=== PATIENT | male | born 1950 | race Hispanic/Latino ===

== ENCOUNTER 2018-01-04 13:20 | Observation (INO) | payer OTHER ==
[~2018-01-04] VITALS: Ht 162.6 cm; Wt 73.6 kg
[~2018-01-04 13:20] MED LIST: CARAFATE1 GM PO; DIABETA5 MG PO; LACTULOSE20 GM/30 M PO; LASIX40 MG PO; MORPHINE SU4 MG/1 ML IJ; NADOLOL40 MG PO; ONDANSETRON IJ; PEPTO BISMOL; PROPRANOLOL HCL10 MG PO; PROTONIX40 MG/ML; SPIRONOLACTONE100 MG PO; SPIRONOLACTONE25 MG PO; ULTRAM50 MG PO; XIFAXAN550 MG PO; Z CLEOCIN IV; [UNRECOGNIZED DRUG - OTHER] IJ
[2018-01-04] MEDS ORDERED: FOLIC ACID1 MG PO (13:40)
[2018-01-04] MEDS ORDERED: LOSARTAN POTASS25 MG PO (13:40)
[2018-01-04] MEDS ORDERED: SPIRONOLACTONE25 MG PO (13:40)
[2018-01-04] MEDS ORDERED: GLIMEPIRIDE1 MG PO (13:40)
[2018-01-04] MEDS ORDERED: CIPRO500 MG PO (13:40)
[2018-01-04] MEDS ORDERED: XIFAXAN200 MG PO (13:40)
[2018-01-04] MEDS ORDERED: LACTULOSE20 GM/30 M PO (13:40)
[2018-01-04 14:25] LABS: BASOPHILS % 0.4 % (0.0-1.0); EOSINOPHILS % 1.3 % (0.0-6.0); HEMOGLOBIN 9.1 g/dL (14.0-18.0); LYMPHOCYTES # (AUTO) 0.4 (1.0-3.2); LYMPHOCYTES % 15.7 % (18.0-39.1); MEAN CORPUSCULAR HEMOGLOBIN 31.9 pg (28-32); MEAN CORPUSCULAR HGB CONC 32.5 g/dL (31-35); MEAN CORPUSCULAR VOLUME 98.2 fL (81-99); MONOCYTES # (AUTO) 0.1 (0.2-0.8); MONOCYTES % 6.1 % (4.4-11.3); NEUTROPHILS # (AUTO) 1.8 (2.1-6.9); NEUTROPHILS % 76.1 % (38.7-80.0); RED BLOOD COUNT 2.85 x10e6/uL (4.3-5.7); RED CELL DISTRIBUTION WIDTH 14.9 % (11.7-14.4)
[2018-01-04 14:29] LABS: PLATELET COUNT 24 x10e3/uL (140-360)
[2018-01-04 14:34] LABS: INR 1.6; PARTIAL THROMBOPLASTIN TIME 33.7 seconds (23.8-35.5); PROTHROMBIN TIME 17.9 seconds (11.9-14.5)
[2018-01-04 14:46] LABS: ALBUMIN 2.7 g/dL (3.5-5.0); ALBUMIN/GLOBULIN RATIO 0.5 (0.8-2.0); ANION GAP 12.7 mmol/L (8-16); CALCIUM 8.2 mg/dL (8.4-10.2); CREATININE, SERUM 1.73 mg/dL (0.72-1.25); POTASSIUM 4.7 mmol/L (3.5-5.1)
--- NOTE | 2018-01-04 14:53 | Diagnostic Imaging Report ---
PROCEDURE: A single AP view of the chest. COMPARISON: 02/15/16 INDICATIONS: ALTERED MENTAL STATUS FINDINGS: Lines/tubes: None. Lungs: The lungs are well inflated and clear. There is no evidence of pneumonia or pulmonary edema. Pleura: There is no pleural effusion or pneumothorax. Heart and mediastinum: The heart and the mediastinum are unremarkable. Bones: No acute bony abnormality. Unchanged upper abdominal surgical clips. IMPRESSION: 1. No acute cardiopulmonary disease. Dictated by: Jose Angel Alvarado M.D. on 01/04/2018 at 14:54 Electronically approved by: Jose Angel Alvarado M.D. on 01/04/2018 at 14:54
[2018-01-04 15:09] LABS: THYROID STIMULATING HORMONE 3.906 uIU/mL (0.350-4.940)
[2018-01-04 15:24] LABS: CLARITY,URINE SL CLOUDY (CLEAR); COLOR,URINE STRAW (YELLOW); LEUKOCYTE ESTERASE ,URINE NEGATIVE (NEGATIVE); NITRITE,URINE NEGATIVE (NEGATIVE)
[2018-01-04 15:25] LABS: BILIRUBIN,URINE NEGATIVE (NEGATIVE); KETONES,URINE NEGATIVE (NEGATIVE); PROTEIN,URINE DIPSTICK 2+ (NEGATIVE); URINE UROBILINOGEN 0.2 mg/dL (0.2 - 1)
--- NOTE | 2018-01-04 15:25 | Diagnostic Imaging Report ---
Examination: CT BRAIN WITHOUT CONTRAST History:Confusion. Altered mental status. Comparison studies:Head CT performed 2011 Technique: Axial images were obtained from the skull base to the vertex. Coronal and sagittal images reconstructed from the axial data. Intravenous contrast: None Findings: Scalp: No abnormalities. Bones: No fractures, blastic or lytic lesions. Brain sulci: Appropriate for age. Ventricles: Normal in size and configuration. No hydrocephalus. Extra-axial space: No abnormalities. Parenchyma: No abnormal densities. No masses, hemorrhage, or acute or chronic cortical based vascular insults.. Sellar/suprasellar region: No abnormalities. Craniocervical junction: Patent foramen magnum. No Chiari one malformation. Incidental findings: Again demonstrated is a partially opacified left maxillary sinus with adjacent osteitis, consistent with chronic sinusitis. Impression: 1. No new or acute intracranial abnormalities. No change from prior head CT performed September 21, 2012. 2. Unchanged chronic left maxillary sinusitis. Signed by: Dr. Jennifer Guzman M.D. on 01/04/2018 3:22 PM
[2018-01-04 15:29] LABS: BACTERIA,URINE MODERATE /HPF; EPITHELIAL CELLS,URINE FEW /LPF
[2018-01-04] MEDS ORDERED: ONDANSETRON HCL INJ 2 MG/ML VIAL IV PRN (16:45)
[2018-01-04] MEDS ORDERED: SODIUM CHLORIDE FLUSH 10 ML SYR INJ PRN (16:45)
[2018-01-04] MEDS ORDERED: HYDRALAZINE HCL 20 MG/ML VIAL IV STA (18:26)
[2018-01-04] MEDS ORDERED: HYDRALAZINE HCL 10 MG TAB PO ONE (18:30)
[2018-01-04] MEDS ORDERED: SODIUM BICARBONATE 8.4% INJ 50 ML SYR IV STA (18:34)
[2018-01-04] MEDS ORDERED: OYST-CAL-D 500MG TABLET PO ONE (18:45)
[2018-01-04] MEDS ORDERED: LACTULOSE SYRUP 20 GM/30 ML UDC PO PRN (18:45)
--- OUTSIDE RECORDS SUMMARY | 2018-01-04 18:53 | XMS REPORT ---
Author Author [facility] Address Unknown Phone Unavailable Care Team Providers Care Supervisor Statement Clerks Name Role Phone JENNI MILTON Unavailable Unavailable Problems This patient has no known problems. Allergies, Adverse Reactions, Alerts This patient has no known allergies or adverse reactions. Medications This patient has no known medications. Results Test Description Test Time Test Comments Text Results Atomic Results Result Comments CHEST SINGLE (PORTABLE) [place] [address] Patient Name: CONCHITA WAYNE MR #: [id number] : 1950 Age/Sex: 67/M Req #: [id number] Adm Physician: Ordered by: SERENA MONTES ELECTRICIAN SUPERVISOR Report #: [id number] Location: ER Room/Bed: Procedure: [id number] DX/CHEST SINGLE (PORTABLE) Exam Date: 01/04/18 Exam Time: 1420 REPORT STATUS: Signed PROCEDURE: A single AP view of the chest. COMPARISON: 02/15/16 INDICATIONS: ALTERED MENTAL STATUS FINDINGS: Lines/tubes: None. Lungs: The lungs are well inflated and clear. There is no evidence of pneumonia or pulmonary edema. Pleura: There is no pleural effusion or pneumothorax. Heart and mediastinum: The heart and the mediastinum are unremarkable. Bones: No acute bony abnormality. Unchanged upper abdominal surgical clips. IMPRESSION: 1. No acute cardiopulmonary disease. Dictated by: Jose Angel Falk M.D. on 01/04/2018 at 14:54 Electronically approved by: Jose Angel Falk M.D. on 01/04/2018 at 14:54 Dictated By: JOSE ANGEL FALK MD COPY TO: SERENA MONTES ELECTRICIAN SUPERVISOR CT BRAIN WO [place] [address] Patient Name: CONCHITA WAYNE MR #: [id number] : 1950 Age/Sex: 67/M Req # : [id number] Adm Physician: Ordered by: SERENA MONTES ELECTRICIAN SUPERVISOR Report #: [id number] Location: ER Room/Bed: Procedure: [id number] CT/CT BRAIN WO Exam Date: 01/04/18 Exam Time: 1420 REPORT STATUS: Signed Examination: CT BRAIN WITHOUT CONTRAST History:Confusion. Altered mental status. Comparison studies:Head CT performed 2011 Technique: Axial images were obtained from the skull base to the vertex. Coronal and sagittal images reconstructed from the axial data. Intravenous contrast: None Findings: Scalp: No abnormalities. Bones: No fractures, blastic or lytic lesions. Brain sulci: Appropriate for age. Ventricles: Normal in size and configuration. No hydrocephalus. Extra-axial space: No abnormalities. Parenchyma: No abnormal densities. No masses, hemorrhage, or acute or chronic cortical based vascular insults.. Sellar/suprasellar region: No abnormalities. Craniocervical junction: Patent foramen magnum. No Chiari one malformation. Incidental findings: Again demonstrated is a partially opacified left maxillary sinus with adjacent osteitis, consistent with chronic sinusitis. Impression: 1. No new or acute intracranial abnormalities. No change from prior head CT performed September 21, 2012. 2. Unchanged chronic left maxillary sinusitis. Signed by: Dr. Jennifer Guzman M.D. on 01/04/2018 3: 22 PM Dictated By: JENNIFER OLIVAS MD 1522 Transcribed By: RUDDY on 01/04 1522 COPY TO: SERENA MONTES NP
[2018-01-04] MEDS ORDERED: SODIUM CHLORIDE 0.45% 1,000 ML IV SCH (19:00)
[2018-01-04 19:03] LABS: % IRON SATURATION 51 % (15-50); AMYLASE 215 U/L (25-125); IRON 155 ug/dL (65-175); TOTAL IRON BINDING CAPACITY 304 ug/dL (261-478); TRANSFERRIN 217 mg/dL (174-364)
[2018-01-04] MEDS: MULTIVITAMINS/MINERALS TAB PO SCH (19:12)
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
[2018-01-04] MEDS ORDERED: MORPHINE SULFATE 2 MG/ML SYR IV STA (22:32)
[2018-01-04 22:50] VITALS: BP 201/91
[2018-01-04 23:33] VITALS: BP 201/91
[2018-01-04] MEDS ORDERED: CLONIDINE HCL 0.2 MG TAB PO ONE (23:45)
[2018-01-05 00:39] VITALS: BP 201/91
[2018-01-05 03:55] VITALS: BP 162/89
[2018-01-05 06:57] LABS: ANION GAP 10.8 mmol/L (8-16); CALCIUM 8.1 mg/dL (8.4-10.2); CREATININE, SERUM 1.6 mg/dL (0.72-1.25); POTASSIUM 4.8 mmol/L (3.5-5.1)
[2018-01-05 07:43] VITALS: BP 148/76
[2018-01-05] MEDS ORDERED: GLIMEPIRIDE 2 MG TAB PO SCH (08:00)
[2018-01-05] MEDS ORDERED: THIAMINE HCL INJ 100 MG/ML 2ML VIAL ONE (08:40)
[2018-01-05] MEDS: CLONIDINE HCL 0.1 MG TAB PO SCH ×2 (08:58→17:36)
[2018-01-05] MEDS: FOLIC ACID 1 MG TAB PO SCH ×2 (08:59→17:37)
[2018-01-05] MEDS: LACTULOSE SYRUP 20 GM/30 ML UDC PO SCH ×2 (08:59→15:39)
[2018-01-05] MEDS: MULTIVITAMINS/MINERALS TAB PO SCH (08:59)
[2018-01-05] MEDS ORDERED: THIAMINE HCL INJ 100 MG/ML 2ML VIAL IV SCH (09:00)
[2018-01-05] MEDS ORDERED: RIFAXIMIN 550 MG TABLET PO SCH (09:00)
[2018-01-05] MEDS ORDERED: THIAMINE HCL INJ 100 MG in SODIUM CHLORIDE 0.9% 50ML 50 ML IV SCH (09:00)
[2018-01-05] MEDS ORDERED: SPIRONOLACTONE 25 MG TAB PO SCH (09:00)
[2018-01-05] MEDS ORDERED: LOSARTAN POTASSIUM 25 MG TAB PO SCH (09:00)
--- NOTE | 2018-01-05 09:01 | Consultation ---
DATE OF CONSULTATION: January 05, 2018 Mr. Hood is a 67-year-old male who has been referred to me for evaluation of anemia, neutropenia, thrombocytopenia. The patient had presented with some confusion. Subsequently, a CT scan of the brain was done, which was essentially normal. Chest x-ray was done, which was essentially normal. Since he had pancytopenia, the patient was admitted and referred to [place] for further evaluation and treatment. HISTORY OF PAST ILLNESSES: History of chronic alcoholism, history of cirrhosis of liver. SOCIAL HISTORY: History of chronic alcoholism, history of diabetes mellitus, noninsulin-dependent, history of hypertension. ALLERGIES: REPORTED NONE. MEDICATIONS: At this time: 1. Thiamine. 2. Sodium chloride. 3. Ondansetron. 4. Lactulose. 5. Losartan. 6. Multivitamins. 7. Folic acid. 8. Glimepiride. 9. Clonidine. REVIEW OF SYSTEMS HEENT: Normal. CARDIAC: History of hypertension. RESPIRATORY: Normal. GI: Cirrhosis of liver, portal hypertension, hypersplenism, and thrombocytopenia. : Normal. MUSCULOSKELETAL: Normal. SKIN AND BREASTS: Normal. NEUROENDOCRINE: Diabetes mellitus, noninsulin-dependent. PHYSICAL EXAMINATION GENERAL: Moderately built male alert at the time of examination. No palpable adenopathy. Has spider angiomas. HEART: Within normal limits. LUNGS: Clear. ABDOMEN: Obese. There is some ascites. RECTAL: Deferred. CENTRAL NERVOUS SYSTEM: Essentially normal. EXTREMITIES: Essentially normal. LABS: Shows a hemoglobin of 9.1, hematocrit 28, white count 2300, and platelets of 24,000. Sodium 138, potassium 4.8, chloride 112, CO2 20, BUN 26, creatinine 1.6, glucose 136, bilirubin 1.6, SGOT 58, SGPT 29, alkaline phosphatase 92. Chest x-ray normal. CT scan of the brain normal. IMPRESSION 1. Cirrhosis of liver. 2. History of chronic alcoholism. 3. Hepatic encephalopathy. 4. Chronic renal failure. 5. Anemia of blood loss. 6. Neutropenia. 7. Thrombocytopenia. 8. Hyperproteinemia. 9. Hypoalbuminemia. 10. 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 11. Hypocalcemia. 12. Maxillary sinusitis by computerized tomography of the brain. 13. Hypertension. 14. Diabetes mellitus, noninsulin-dependent. PLAN, COMMENTS AND SUGGESTIONS: Suggest lactulose for the hepatic encephalopathy, which he has. Watch the ammonia level. Will watch the CBC. No hematological intervention at this time. Thank you very much for allowing me to participate in the management of this patient. Job#: [id number] RI cc:GRISEL MAXWELL MD
[2018-01-05] MEDS ORDERED: CATAPRES0.1 MG PO (10:24)
[2018-01-05] MEDS ORDERED: ALDACTONE25 MG PO (10:31)
[2018-01-05 11:23] VITALS: BP 148/76
[2018-01-05 11:24] VITALS: BP 142/73
--- NOTE | 2018-01-05 13:49 | Diagnostic Imaging Report ---
PROCEDURE:US RETROPERITONEAL ( KIDNEY ). COMPARISON:Ultrasound 02/17/2016 INDICATIONS:Creat 1.7 BPH TECHNIQUE: [place]ourke-scale and color sonographic images of the bilateral kidneys and bladder where obtained in transverse and longitudinal planes. FINDINGS: RIGHT KIDNEY: 10.7 x 5 x 4.8, cortex 1.2 cm Cysts: None Solid masses: None Stones: None Hydronephrosis: None Echogenicity: Increased LEFT KIDNEY: 11.2 x 5.7 x 5.2 cm, cortex 1.9 cm Cysts: None Solid masses: None Stones: None Hydronephrosis: None Echogenicity: Increased Bladder: Circumferential bladder wall thickening measuring up to 0.9 cm in thickness. Spleen is enlarged measuring 16.6 cm in length, likely related to portal hypertension given cirrhotic liver on US 02/17/2016. Ascites is noted. CONCLUSION: 1. Increased renal echogenicity suggestive of medical renal disease. No hydronephrosis. 2. Partially visualized cirrhotic liver with splenomegaly and ascites. Dictated by: Miles Espinosa M.D. on 01/05/2018 at 13:50 Electronically approved by: Miles Espinosa M.D. on 01/05/2018 at 13:50
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
[2018-01-05 15:41] VITALS: BP 164/81
[2018-01-06 05:48] LABS: PROSTATE SPECIFIC AG TOTAL 1.2 ng/mL (0.0-4.0); PSA FREE 0.36 ng/mL
[2018-01-06] MEDS ORDERED: SPIRONOLACTONE 25 MG TAB PO SCH (09:00)
== END 2018-01-05 18:32 | disposition home or self-care (01) ==
LOC: ER 13:20 → ERHOLD 18:50 → IMCU 22:20
PROVIDERS: ADMIT Internal Medicine Cardiovascular Disease; ATTEND Internal Medicine Cardiovascular Disease
DX: K74.60 Unspecified cirrhosis of liver (principal); R41.82 Altered mental status, unspecified; D61.818 Other pancytopenia; D64.9 Anemia, unspecified; E11.9 Type 2 diabetes mellitus without complications; E87.2 Acidosis; N18.9 Chronic kidney disease, unspecified; N40.0 Benign prostatic hyperplasia without lower urinary tract symptoms; F10.20 Alcohol dependence, uncomplicated; E88.09 Other disorders of plasma-protein metabolism, not elsewhere classified; R77.1 Abnormality of globulin; E83.51 Hypocalcemia; J32.0 Chronic maxillary sinusitis; I10 Essential (primary) hypertension
CPT/HCPCS: 36415 ×2; 70450; 71045; 76770; 80048; 80053; 80320; 81001; 82140; 82150; 82270; 82550; 82553; 82607; 82746; 82948 ×2; 83540; 83605; 83690; 84153; 84443; 84466; 84484; 85025; 85610; 85730; 87040; 87086; 93005; 96360; 97139; 97161; 99284; G0378 ×2; J0360; J2270; J3411

== ENCOUNTER 2018-02-09 11:10 | Inpatient (IN) | payer OTHER ==
[~2018-02-09] VITALS: Ht 160 cm; Wt 67.2 kg
[~2018-02-09 11:10] MED LIST changes: +ALDACTONE25 MG PO; +CATAPRES0.1 MG PO; +CIPRO500 MG PO; +FOLIC ACID1 MG PO; +GLIMEPIRIDE1 MG PO; +LOSARTAN POTASS25 MG PO; +XIFAXAN200 MG PO
--- OUTSIDE RECORDS SUMMARY | 2018-02-09 11:13 | XMS REPORT | Continuity of Care Document ---
Author Author [facility] Organization [facility] Address [address] [place] [address] Phone Unavailable Care Team Providers Care Opal Polisher Name Role Phone JASMINE NOGUEIRA MD PCP Insurance Providers Guarantor Keon Wayne Address [address] [place] [address] Payer [facility] Policy Number [id number] Subscriber's Name Keon Wayne Relationship 18 Self / Same As Patient Group Number [id number] Group Name [facility] Effective Date 01 Advance Directives Directive Response Recorded Date/Time Does the patient have an advance directive? No 01/05/18 12:48am If yes, [facility]? No 01/05/18 12:48am If not on file with [facility] will patient provide a copy? No 01/05/18 12:48am Do you have a Directive to Physician? No 01/04/18 1:50pm Do you have a Medical Power of Resident Director? No 01/04/18 1:50pm Do you have an out of hospital Do Not Resuscitate Order? No 01/04/18 1:50pm Do you have any special needs we should be aware of? No 01/04/18 1:50pm Do you have a support person here with you today? Yes 01/04/18 1:50pm Did patient receive Notice of Privacy Practices? Yes 01/04/18 1:50pm Did patient receive patient rights and responsibilities? Yes 01/04/18 1:50pm Problems Medical Problem Onset Date Status Altered mental state Unknown Anemia 02/15/2016 Acute Cirrhosis 02/15/2016 Acute Hypertension Unknown Leukopenia 02/15/2016 Acute Pancytopenia Unknown Thrombocytopenia 02/15/2016 Acute Medications Current Home Medications Medication Dose Units Route Directions Days Qty Instructions Start Date Clonidine Hcl (Catapres) 0.1 Mg Tablet 0.1 Mg Oral Twice A Day 90 Days 01/05/18 Folic Acid 1 Mg Tablet 1 Mg Oral Twice A Day 30 Tab Glimepiride 1 Mg Tablet 0 Oral Lactulose 20 Gm/30 Ml Solution 75 Ml Oral Three Times A Day Losartan Potassium 25 Mg Tablet Mg Oral Rifaximin (Xifaxan) 200 Mg Tablet 550 Mg Oral Daily Spironolactone (Aldactone) 25 Mg Tablet 25 Mg Oral Daily 90 Days Past Home Medications Medication Directions Ordered Status Ciprofloxacin Hcl (Cipro) 500 Mg Tablet, 0 Oral Every 12 Hours Discontinued Clindamycin Hcl/Dextrose (Cleocin 600 [id number]) 600 Mg/50 Ml Piggyback, 600 Mg Intraven Every 8 Hours Discontinued Furosemide (Lasix) 40 Mg Tablet, 40 Mg Oral Daily Discontinued Morphine Sulfate 4 Mg/1 Ml Disp.syrin, 4 Mg Injection Every 3-4 Hours as needed Discontinued Nadolol 40 Mg Tablet, 1 Tab Oral Discontinued Ondansetron Hcl/Pf (Zofran 4 Mg/2 Ml Vial) 4 Mg/2 Ml Vial, 4 Mg Injection Every 3-4 Hours as needed Discontinued Pantoprazole Sod (Protonix) 40 Mg/Ml Susp, Discontinued Pepto Bismol , Discontinued Spironolactone 25 Mg Tablet, 50 Mg Oral Twice A Day Discontinued Spironolactone 100 Mg Tablet, 100 Mg Oral Daily Discontinued Sucralfate (Carafate) 1 Gm Tablet, Tab Oral Four Times Daily Discontinued Tramadol Hcl (Ultram) 50 Mg Tablet, 50 Mg Oral Daily Discontinued Social History Social History Problem Response Recorded Date/Time Onset Date Status Hx Psychiatric Problems No 01/05/2018 12:48am Not Applicable Not Applicable Hx Eating Disorder No 01/05/2018 12:48am Not Applicable Not Applicable Hx Substance Use Disorder No 01/05/2018 12:48am Not Applicable Not Applicable Hx Depression No 01/05/2018 12:48am Not Applicable Not Applicable Hx Alcohol Use Y - SAYS HE HAS NOT DRANK FOR 4 MONTHS 01/05/2018 12:48am Not Applicable Not Applicable Hx Substance Use Treatment No 01/05/2018 12:48am Not Applicable Not Applicable Hx Physical Abuse No 01/05/2018 12:48am Not Applicable Not Applicable Smoking Status Start Date Stop Date Unknown if ever smoked Hospital Discharge Instructions No hospital discharge instruction information available. Plan of Care Discharge Date 01/05/18 6:32pm Disposition HOME, SELF-CARE Instructions/Education Provided Cirrhosis Prescriptions See Medication Section Referrals GRISEL MAXWELL MD (Cardiology) Order Date: 5-7 Days Entered Date: 01/05/2018 10:28am Address: [address] [place] [id number] Reason(s) for Referral: Hypertension JASMINE NOGUEIRA MD (Internal Medicine) Order Date: 5-7 Days Entered Date: 01/05/2018 10:28am Address: [address] [place] [id number] LEXII PHILLIPS MD (Internal Medicine) Order Date: 5-7 Days Entered Date: 01/05/2018 10:28am Address: [address] [place] [address], [place] [address] Additional Instructions/Education FOLLOW UP WITH IN 5-7 DAYS FOLLOW UP WITH DR. MAXWELL IN 5-7 DAYS FOLLOW UP WITH DR. NOGUEIRA IN 5-7 DAYS FOLLOW UP WITH IN 1-2 WEEKS FOLLOW UP WITH DR. MONTANA IN 1-2 WEEKS Functional Status Query Response Date Recorded FUNCTIONAL STATUS . January 05, 2018 3:29pm Assistive Devices None January 05, 2018 12:39am Ambulation Ability Independent Standby Assistance Minimum Assistance January 05, 2018 12:39am Toileting Ability Independent January 05, 2018 12:39am Allergies, Adverse Reactions, Alerts Allergen Type Severity Reaction Status Last Updated No Known Drug Allergies Allergy Unknown Active 10/14/08 Immunizations No immunization information available. Vital Signs Acute Vital Signs Vital Response Date/Time Temperature (Fahrenheit) 97.8 degrees F (97.6 - 99.5) 01/05/2018 3:41pm Pulse Pulse Rate (adult) 64 bpm (60 - 90) 01/05/2018 3:41pm Respiratory Rate 21 bpm (12 - 24) 01/05/2018 3:41pm Blood Pressure 164/81 mm Hg 01/05/2018 3:41pm Height 5 ft 4 in 01/04/2018 10:50pm Weight 162.19 lb 01/04/2018 10:50pm Body Mass Index 27.8 kg/m^2 01/05/2018 12:48am Results Laboratory Results Test Name Result Units Flags Reference Collection Date/Time Result Date/ Time Comments White Blood Count 2.30 x10e3/uL L 4.8-10.8 01/04/2018 1:45pm 01/04/2018 2:29pm Red Blood Count 2.85 x10e6/uL L 4.3-5.7 01/04/2018 1:45pm 01/04/2018 2: 29pm Hemoglobin 9.1 g/dL L 14.0-18.0 01/04/2018 1:45pm 01/04/2018 2:29pm Hematocrit 28.0 % L 38.2-49.6 01/04/2018 1:45pm 01/04/2018 2:29pm Mean Corpuscular Volume 98.2 fL 81-99 01/04/2018 1:45pm 01/04/2018 2: 29pm Mean Corpuscular Hemoglobin 31.9 pg 28-32 01/04/2018 1:45pm 01/04/2018 2:29pm Mean Corpuscular Hemoglobin Concent 32.5 g/dL 31-35 01/04/2018 1:45pm 01/04/2018 2:29pm Red Cell Distribution Width 14.9 % H 11.7-14.4 01/04/2018 1:45pm 2017 2:29pm Platelet Count 24 x10e3/uL *L 140-360 01/04/2018 1:45pm 01/04/2018 2: 29pm NO CLOT DETECTED Results called to DON NAVARRO at 1428 on 01/04/18 by NHI CANTRELL. RB OK. Neutrophils (%) (Auto) 76.1 % 38.7-80.0 01/04/2018 1:45pm 01/04/2018 2: 29pm Lymphocytes (%) (Auto) 15.7 % L 18.0-39.1 01/04/2018 1:45pm 01/04/2018 2 :29pm Monocytes (%) (Auto) 6.1 % 4.4-11.3 01/04/2018 1:45pm 01/04/2018 2: 29pm Eosinophils (%) (Auto) 1.3 % 0.0-6.0 01/04/2018 1:45pm 01/04/2018 2: 29pm Basophils (%) (Auto) 0.4 % 0.0-1.0 01/04/2018 1:45pm 01/04/2018 2:29pm IM GRANULOCYTES % 0.4 % 0.0-1.0 01/04/2018 1:45pm 01/04/2018 2:29pm Neutrophils # (Auto) 1.8 L 2.1-6.9 01/04/2018 1:45pm 01/04/2018 2: 29pm Lymphocytes # (Auto) 0.4 L 1.0-3.2 01/04/2018 1:45pm 01/04/2018 2: 29pm Monocytes # (Auto) 0.1 L 0.2-0.8 01/04/2018 1:45pm 01/04/2018 2:29pm Eosinophils # (Auto) 0.0 0.0-0.4 01/04/2018 1:45pm 01/04/2018 2:29pm Basophils # (Auto) 0.0 0.0-0.1 01/04/2018 1:45pm 01/04/2018 2:29pm Absolute Immature Granulocyte (auto 0.01 x10e3/uL 0-0.1 01/04/2018 1: 45pm 01/04/2018 2:29pm Prothrombin Time 17.9 seconds H 11.9-14.5 01/04/2018 1:45pm 01/04/2018 2 :35pm Prothromb Time International Ratio 1.60 01/04/2018 1:45pm 2017 2:35pm Oral Anticoagulant Therapy INR Values: 1. Low Intensity Therapy 1.5 - 2.0 2. Moderate Intensity Therapy 2.0 - 3.0 3. High Intensity Therapy(1) 2.5 - 3.5 4. High Intensity Therapy(2) 3.0 - 4.0 5. Panic Value INR > 5.0 Activated Partial Thromboplast Time 33.7 seconds 23.8-35.5 01/04/2018 1: 45pm 01/04/2018 2:35pm Urine Color STRAW YELLOW 01/04/2018 3:00pm 01/04/2018 3:25pm Urine Clarity SL CLOUDY H CLEAR 01/04/2018 3:00pm 01/04/2018 3:25pm Urine Specific [place] 1.015 1.010-1.025 01/04/2018 3:00pm 2017 3:25pm Urine pH 5 5 - 7 01/04/2018 3:00pm 01/04/2018 3:25pm Urine Leukocyte Esterase NEGATIVE NEGATIVE 01/04/2018 3:00pm 2017 3:25pm Urine Nitrite NEGATIVE NEGATIVE 01/04/2018 3:00pm 01/04/2018 3:25pm Urine Protein 2+ H NEGATIVE 01/04/2018 3:00pm 01/04/2018 3:25pm Urine Glucose (UA) NEGATIVE NEGATIVE 01/04/2018 3:00pm 01/04/2018 3: 25pm Urine Ketones NEGATIVE NEGATIVE 01/04/2018 3:00pm 01/04/2018 3:25pm Urine Urobilinogen 0.2 mg/dL 0.2 - 1 01/04/2018 3:00pm 01/04/2018 3: 25pm Urine Bilirubin NEGATIVE NEGATIVE 01/04/2018 3:00pm 01/04/2018 3: 25pm Urine Blood 1+ H NEGATIVE 01/04/2018 3:00pm 01/04/2018 3:25pm Urine WBC NONE /HPF 0-5 01/04/2018 3:00pm 01/04/2018 3:29pm Urine RBC 6-10 /HPF H 0-5 01/04/2018 3:00pm 01/04/2018 3:29pm Urine Bacteria MODERATE /HPF H NONE 01/04/2018 3:00pm 01/04/2018 3:29pm Urine Epithelial Cells FEW /LPF NONE 01/04/2018 3:00pm 01/04/2018 3: 29pm Urine Hyaline Casts 2-5 H 0-1 01/04/2018 3:00pm 01/04/2018 3:29pm Sodium Level 138 mmol/L 136-145 01/05/2018 6:2501/05/2018 6:58am Potassium Level 4.8 mmol/L 3.5-5.1 01/05/2018 6:2501/05/2018 6:58am Chloride Level 112 mmol/L H 98-107 01/05/2018 6:2501/05/2018 6:58am Carbon Dioxide Level 20 mmol/L L 22-29 01/05/2018 6:2501/05/2018 6: 58am Anion Gap 10.8 mmol/L 8-16 01/05/2018 6:01/05/2018 6:58am Blood Urea Nitrogen 26 mg/dL 7-26 01/05/2018 6:01/05/2018 6:58am Creatinine 1.60 mg/dL H 0.72-1.25 01/05/2018 6:01/05/2018 6:58am BUN/Creatinine Ratio 16 6-01/05/2018 6:01/05/2018 6:58am Estimat Glomerular Filtration Rate 44 ML/MIN L 60- 01/05/2018 6:07/2018 6:58am Ranges were taken from the National Kidney Disease Education Program and the National Kid[employer] Foundation literature. Reference ranges: 60 or greater: Normal 16-59 (for 3 consecutive months): Chronic kidney disease 15 or less: Kidney failure Glucose Level 136 mg/dL H 74-118 01/05/2018 6:2501/05/2018 6:58am Calcium Level 8.1 mg/dL L 8.4-10.2 01/05/2018 6:2501/05/2018 6:58am Bedside Glucose 152 mg/dL H 70-120 01/05/2018 7:0801/05/2018 7:32am Meter ID: [id number] Lactic Acid Level 18.6 MG/DL 4.5-19.8 01/04/2018 1:45pm 01/04/2018 2: 42pm Iron Level 155 ug/dL 65-175 01/04/2018 1:45pm 01/04/2018 7:05pm Total Iron Binding Capacity 304 ug/dL 261-478 01/04/2018 1:45pm 2017 7:05pm Percent Iron Saturation 51 % H 15-50 01/04/2018 1:45pm 01/04/2018 7: 05pm Transferrin 217 mg/dL 174-364 01/04/2018 1:45pm 01/04/2018 7:05pm Total Bilirubin 1.6 mg/dL H 0.2-1.2 01/04/2018 1:45pm 01/04/2018 2:50pm Aspartate Amino Transf (AST/SGOT) 58 IU/L H 5-34 01/04/2018 1:45pm 01/04 2:50pm Alanine Aminotransferase (ALT/SGPT) 29 IU/L 0-55 01/04/2018 1:45pm 06/2018 2:50pm Ammonia 88 UG/DL 31-123 01/04/2018 1:45pm 01/04/2018 2:35pm Total Protein 8.3 g/dL H 6.5-8.1 01/04/2018 1:45pm 01/04/2018 2:50pm Albumin 2.7 g/dL L 3.5-5.0 01/04/2018 1:45pm 01/04/2018 2:50pm Globulin 5.6 g/dL H 2.3-3.5 01/04/2018 1:45pm 01/04/2018 2:50pm Albumin/Globulin Ratio 0.5 L 0.8-2.0 01/04/2018 1:45pm 01/04/2018 2: 50pm Alkaline Phosphatase 92 IU/L 40-150 01/04/2018 1:45pm 01/04/2018 2: 50pm Creatine Kinase 146 IU/L 30-200 01/04/2018 1:45pm 01/04/2018 2:50pm Creatine Kinase MB 1.00 ng/mL 0-5.0 01/04/2018 1:45pm 01/04/2018 3: 09pm Troponin I 0.007 ng/mL 0-0.300 01/04/2018 1:45pm 01/04/2018 3:09pm Amylase Level 215 U/L H 25-125 01/04/2018 1:45pm 01/04/2018 7:05pm Lipase 36 U/L 8-78 01/05/2018 6:25am 01/05/2018 6:58am Vitamin B12 Level > 2000 pg/mL H 213-816 01/04/2018 1:45pm 01/04/2018 7: 43pm Folate 17.0 ng/mL H 7.0-15.4 01/04/2018 1:45pm 01/04/2018 7:43pm Thyroid Stimulating Hormone (TSH) 3.906 uIU/mL 0.350-4.940 01/04/2018 1: 45pm 01/04/2018 3:09pm Ethyl Alcohol Level < 10.0 mg/dL 0.0-10.0 01/04/2018 1:45pm 01/04/2018 3:07pm Stool Occult Blood POSITIVE H NEGATIVE 01/04/2018 8:15pm 01/04/2018 8: 40pm Microbiology Results Procedure Source Organism/Result Collection Date/Time Result Date/Time Result Status Blood Culture Blood NO GROWTH AFTER 24 HOURS 01/04/2018 2:10pm 01/05/2018 2:23pm Preliminary Procedures Procedure Status Date Provider(s) Computed tomography of brain without radiopaque contrast Active 01/04/18 SERENA MONTES LENS MARKER Ultrasound, renal Active 01/05/18 GRISEL MAXWELL MD Encounters Encounter Location Arrival/Admit Date Discharge/Depart Date Attending Provider Discharged Inpatient (obs) [facility] 01/04/18 6:50pm 08/14 6:32pm GRISEL MAXWELL MD
[2018-02-09] MEDS ORDERED: XIFAXAN550 MG PO (11:47)
[2018-02-09] MEDS ORDERED: METOPROLOL TART50 MG PO (11:47)
[2018-02-09 12:15] LABS: BASOPHILS % 0.8 % (0.0-1.0); EOSINOPHILS # (AUTO) 0.1 (0.0-0.4); EOSINOPHILS % 3.9 % (0.0-6.0); HEMATOCRIT 31.3 % (38.2-49.6); HEMOGLOBIN 10.7 g/dL (14.0-18.0); LYMPHOCYTES # (AUTO) 0.5 (1.0-3.2); LYMPHOCYTES % 20.9 % (18.0-39.1); MEAN CORPUSCULAR HEMOGLOBIN 31.9 pg (28-32); MEAN CORPUSCULAR HGB CONC 34.2 g/dL (31-35); MEAN CORPUSCULAR VOLUME 93.4 fL (81-99); MONOCYTES # (AUTO) 0.2 (0.2-0.8); MONOCYTES % 8.1 % (4.4-11.3); NEUTROPHILS # (AUTO) 1.7 (2.1-6.9); NEUTROPHILS % 66.3 % (38.7-80.0); RED BLOOD COUNT 3.35 x10e6/uL (4.3-5.7)
[2018-02-09 12:21] LABS: PLATELET COUNT 38 x10e3/uL (140-360)
[2018-02-09 12:27] LABS: ALBUMIN 3.1 g/dL (3.5-5.0); ALBUMIN/GLOBULIN RATIO 0.6 (0.8-2.0); CALCIUM 8.8 mg/dL (8.4-10.2); CLARITY,URINE CLEAR (CLEAR); COLOR,URINE YELLOW (YELLOW); CREATININE, SERUM 1.68 mg/dL (0.72-1.25); LEUKOCYTE ESTERASE ,URINE NEGATIVE (NEGATIVE); NITRITE,URINE NEGATIVE (NEGATIVE); PHOSPHORUS 3.4 MG/DL (2.3-4.7); PROTEIN,URINE DIPSTICK 2+ (NEGATIVE)
[2018-02-09 12:28] LABS: BILIRUBIN,URINE NEGATIVE (NEGATIVE); KETONES,URINE NEGATIVE (NEGATIVE); URINE UROBILINOGEN 0.2 mg/dL (0.2 - 1)
[2018-02-09] MEDS ORDERED: ENALAPRILAT IV INJ 1.25 MG/ML VIAL IV STA (12:35)
[2018-02-09 12:38] LABS: BACTERIA,URINE FEW /HPF; EPITHELIAL CELLS,URINE FEW /LPF; WBC,URINE (MAN) 0-5 /HPF (0-5)
[2018-02-09] MEDS ORDERED: SODIUM CHLORIDE 0.9% 1000ML 1,000 ML IV ONE (12:45)
[2018-02-09 12:47] LABS: THYROID STIMULATING HORMONE 3.134 uIU/mL (0.350-4.940)
[2018-02-09] MEDS ORDERED: LACTULOSE SYRUP 20 GM/30 ML UDC PO ONE (13:00)
[2018-02-09] MEDS ORDERED: SODIUM CHLORIDE 0.9% 1000ML 1,000 ML IV SCH (13:04)
[2018-02-09] MEDS ORDERED: ONDANSETRON HCL INJ 2 MG/ML VIAL IV PRN (13:15)
[2018-02-09 13:18] LABS: BAND NEUTROPHILS % (MANUAL) 1 %; EOSINOPHILS % (MANUAL) 3 % (0-7); LYMPHOCYTES % (MANUAL) 25 % (19-48); MONOCYTES % (MANUAL) 11 % (3.4-9.0); NEUTROPHILS % (MANUAL) 59 % (40-74); PLATELET ESTIMATE MARKEDLY DECREASED; PLATELET MORPHOLOGY COMMENT FEW LARGE
[2018-02-09 13:19] LABS: ANISOCYTOSIS SLIGHT; HYPOCHROMASIA SLIGHT; POIKILOCYTOSIS SLIGHT; RBC MORPHOLOGY COMMENT NORMAL
[2018-02-09] MEDS ORDERED: ONDANSETRON HCL 4 MG ORAL DISINTEGRATING TAB SL PRN (13:45)
[2018-02-09] MEDS: HYDRALAZINE HCL 20 MG/ML VIAL IV PRN (14:10)
[2018-02-09 16:46] VITALS: BP 162/74
[2018-02-09] MEDS ORDERED: RIFAXIMIN 200 MG TAB PO SCH (17:00)
[2018-02-09] MEDS: FAMOTIDINE 20 MG/2 ML VIAL IV SCH (17:34)
[2018-02-09] MEDS: RIFAXIMIN 550 MG TABLET PO SCH (17:34)
[2018-02-09 20:00] VITALS: BP 178/77
[2018-02-09] MEDS: LACTULOSE SYRUP 20 GM/30 ML UDC PO SCH ×2 (20:56→23:33)
[2018-02-09] MEDS: SODIUM BICARBONATE 650 MG TAB PO SCH (20:56)
[2018-02-09] MEDS ORDERED: LACTULOSE SYRUP 20 GM/30 ML UDC PO SCH (21:00)
[2018-02-09 21:41] VITALS: BP 178/77
[2018-02-10] VITALS (7 sets, daily range): BP systolic 144–195; BP diastolic 69–86
[2018-02-10] MEDS: SODIUM BICARBONATE 650 MG TAB PO SCH ×3 (01:20→17:17)
[2018-02-10] MEDS: HYDRALAZINE HCL 20 MG/ML VIAL IV PRN ×2 (06:22→17:17)
[2018-02-10 06:51] LABS: BASOPHILS % 0.6 % (0.0-1.0); EOSINOPHILS # (AUTO) 0.1 (0.0-0.4); EOSINOPHILS % 5.3 % (0.0-6.0); HEMATOCRIT 27.7 % (38.2-49.6); HEMOGLOBIN 9.5 g/dL (14.0-18.0); LYMPHOCYTES # (AUTO) 0.3 (1.0-3.2); LYMPHOCYTES % 19.3 % (18.0-39.1); MEAN CORPUSCULAR HEMOGLOBIN 32.6 pg (28-32); MEAN CORPUSCULAR HGB CONC 34.3 g/dL (31-35); MEAN CORPUSCULAR VOLUME 95.2 fL (81-99); MONOCYTES # (AUTO) 0.2 (0.2-0.8); MONOCYTES % 11.1 % (4.4-11.3); NEUTROPHILS # (AUTO) 1.1 (2.1-6.9); NEUTROPHILS % 63.7 % (38.7-80.0); RED BLOOD COUNT 2.91 x10e6/uL (4.3-5.7); RED CELL DISTRIBUTION WIDTH 14.3 % (11.7-14.4)
[2018-02-10 06:57] LABS: INR 1.7; PROTHROMBIN TIME 18.8 seconds (11.9-14.5)
[2018-02-10 06:58] LABS: PARTIAL THROMBOPLASTIN TIME 35.1 seconds (23.8-35.5)
[2018-02-10 07:01] LABS: PLATELET COUNT 29 x10e3/uL (140-360)
[2018-02-10 07:06] LABS: ALBUMIN 2.5 g/dL (3.5-5.0); ALBUMIN/GLOBULIN RATIO 0.6 (0.8-2.0); ANION GAP 9.3 mmol/L (8-16); CALCIUM 8.4 mg/dL (8.4-10.2); CREATININE, SERUM 1.58 mg/dL (0.72-1.25); MAGNESIUM 1.8 MG/DL (1.3-2.1); PHOSPHORUS 3.9 MG/DL (2.3-4.7); POTASSIUM 4.3 mmol/L (3.5-5.1)
[2018-02-10 07:54] LABS: ANISOCYTOSIS SLIGHT; EOSINOPHILS % (MANUAL) 6 % (0-7); HYPOCHROMASIA SLIGHT; LYMPHOCYTES % (MANUAL) 17 % (19-48); MONOCYTES % (MANUAL) 11 % (3.4-9.0); NEUTROPHILS % (MANUAL) 66 % (40-74); PLATELET ESTIMATE MARKEDLY DECREASED; PLATELET MORPHOLOGY COMMENT NORMAL; RBC MORPHOLOGY COMMENT NORMAL
[2018-02-10] MEDS ORDERED: GLIMEPIRIDE 2 MG PO SCH (09:00)
[2018-02-10] MEDS ORDERED: LACTULOSE SYRUP 20 GM/30 ML UDC PO SCH (09:00)
[2018-02-10] MEDS ORDERED: SPIRONOLACTONE 25 MG TAB PO SCH (09:00)
--- NOTE | 2018-02-10 11:04 | Diagnostic Imaging Report ---
PROCEDURE:ABDOMINAL ULTRASOUND COMPARISON:05/15/2012. INDICATIONS:R/O LIVER CANCER, R/O ASCITES, HEPATIC ENCEPHALOPAHY FINDINGS: Liver: 11.6 cm in length and the right midclavicular line. Nodular hepatic contour with heterogeneous parenchymal echotexture compatible with cirrhosis. No focal mass lesion.. Main portal vein: 1 cm in caliber. Hepatopedal flow. Gallbladder: Surgically removed. Common Bile Duct: 0.4 cm in caliber. No echogenic filling defect. Right kidney: 8.5 cm in length. No solid or cystic mass, echogenic calculi, or hydronephrosis. Normal parenchymal echogenicity. Left kidney: 11.5 cm in length. No solid or cystic mass, echogenic calculi, or hydronephrosis. Normal parenchymal echogenicity. Spleen: 14.2 cm in length. Uniform parenchymal echotexture. Pancreas: The visualized portions of the pancreas are normal. Inferior vena cava: Patent. Aorta: Non-aneurysmal. Ascites: Small volume perihepatic ascites.. CONCLUSION: Cirrhosis with portal hypertension evidenced by splenomegaly and small volume perihepatic ascites. No focal liver mass lesions. Dictated by: Swapnil Arauz M.D. on 02/10/2018 at 11:06 Electronically approved by: Swapnil Arauz M.D. on 02/10/2018 at 11:06
[2018-02-10] MEDS: FAMOTIDINE 20 MG/2 ML VIAL IV SCH ×2 (11:58→17:17)
[2018-02-10] MEDS: LOSARTAN POTASSIUM 25 MG TAB PO SCH (11:58)
[2018-02-10] MEDS: GLIMEPIRIDE 2 MG TAB PO SCH ×2 (11:58→17:17)
[2018-02-10] MEDS: METOPROLOL TARTRATE 50 MG TAB PO SCH (11:58)
[2018-02-10] MEDS: FOLIC ACID 1 MG TAB PO SCH (11:58)
[2018-02-10] MEDS: RIFAXIMIN 550 MG TABLET PO SCH ×2 (11:59→17:17)
[2018-02-10] MEDS: AMLODIPINE BESYLATE 5 MG TAB PO SCH (11:59)
[2018-02-10] MEDS: LACTULOSE SYRUP 20 GM/30 ML UDC PO SCH ×3 (11:59→17:17)
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
--- NOTE | 2018-02-10 18:50 | Consultation ---
DATE OF CONSULTATION: February 10, 2018 Mr. Hood is a 67-year-old male referred to me for evaluation of anemia, neutropenia, thrombocytopenia, cirrhosis of liver, portal hypertension, hypersplenism, perihepatic encephalopathy. The patient presented with confusion. Subsequently, an ultrasound of the abdomen showed the patient to have a cirrhotic live, some ascites, splenomegaly and a high ammonia level. HISTORY OF PAST ILLNESSES: History of chronic alcoholism, history of cirrhosis of liver. SOCIAL HISTORY: Chronic alcoholism, history of diabetes, [id number], history of hypertension. MEDICATIONS: 1. Thiamine. 2. Sodium chloride. 3. Ondansetron. 4. Losartan. 5. Multivitamins. 6. Folic acid. 7. Glyburide. 8. Clonidine. REVIEW OF SYSTEMS: HEENT: Normal. CARDIAC: History of hypertension. RESPIRATORY: Normal. GI: Cirrhosis of liver, portal hypertension, hypersplenism, thrombocytopenia, neutropenia and anemia. : Normal. MUSCULOSKELETAL: Normal. SKIN AND BREASTS: Normal. NEUROENDOCRINE: Diabetes, noninsulin dependent. PHYSICAL EXAMINATION: GENERAL: Moderately built male, slightly confused. No adenopathy. Has spider angioma over the chest. HEART: Within normal limits. LUNGS: Clear. ABDOMEN: Obese. Spleen is felt 2 inches on the costal margin. RECTAL EXAM: Deferred. CENTRAL NERVOUS SYSTEM: Apart from confusion, essentially does not show any neurological signs. LABORATORY DATA: Shows a sodium of 135, potassium 4.0, chloride 110, CO2 19. Total protein 6.6, albumin 2.5, globulins 4.1. The patient's ammonia level is high at 131. CBC shows a hemoglobin of 9.5, hematocrit 27.7, white count 1700, platelets are 29,000. The absolute neutrophil count is low at 1.1. Ultrasound of the abdomen shows cirrhosis, portal hypertension as well as splenomegaly. IMPRESSION: 1. Cirrhosis of liver. 2. Anemia. 3. Neutropenia. 4. Thrombocytopenia. 5. Chronic renal failure. 6. Hypoalbuminemia. 7. Hyperglobulinemia polyclonal. 8. Hepatic encephalopathy. 9. Splenomegaly. 10. Ascites. PLAN: Plan is to give him Neupogen to keep the absolute neutrophil count [id number]. Lactulose. Blood transfusion and platelet transfusion at this time is not require. Job#: [id number] cc:GRISEL MAXWELL MD
[2018-02-10] MEDS: FILGRASTIM 300 MCG/ML VIAL SC SCH (19:45)
[2018-02-11] VITALS (8 sets, daily range): BP systolic 143–153; BP diastolic 65–74
[2018-02-11 07:09] LABS: BASOPHILS % 0.3 % (0.0-1.0); EOSINOPHILS # (AUTO) 0.1 (0.0-0.4); EOSINOPHILS % 1.3 % (0.0-6.0); HEMATOCRIT 29.6 % (38.2-49.6); HEMOGLOBIN 10.3 g/dL (14.0-18.0); LYMPHOCYTES # (AUTO) 0.5 (1.0-3.2); LYMPHOCYTES % 6.7 % (18.0-39.1); MEAN CORPUSCULAR HEMOGLOBIN 33.1 pg (28-32); MEAN CORPUSCULAR HGB CONC 34.8 g/dL (31-35); MEAN CORPUSCULAR VOLUME 95.2 fL (81-99); MONOCYTES # (AUTO) 0.5 (0.2-0.8); MONOCYTES % 6.7 % (4.4-11.3); NEUTROPHILS # (AUTO) 6.5 (2.1-6.9); NEUTROPHILS % 84.6 % (38.7-80.0); RED BLOOD COUNT 3.11 x10e6/uL (4.3-5.7); RED CELL DISTRIBUTION WIDTH 14.4 % (11.7-14.4)
[2018-02-11 07:18] LABS: PLATELET COUNT 39 x10e3/uL (140-360)
[2018-02-11 07:33] LABS: INR 1.75; PROTHROMBIN TIME 19.2 seconds (11.9-14.5)
[2018-02-11 07:58] LABS: ALBUMIN 2.7 g/dL (3.5-5.0); ALBUMIN/GLOBULIN RATIO 0.6 (0.8-2.0); CALCIUM 8.5 mg/dL (8.4-10.2); CREATININE, SERUM 1.79 mg/dL (0.72-1.25)
[2018-02-11 07:59] LABS: ANISOCYTOSIS SLIGHT; BAND NEUTROPHILS % (MANUAL) 1 %; HYPOCHROMASIA SLIGHT; LYMPHOCYTES % (MANUAL) 3 % (19-48); MONOCYTES % (MANUAL) 5 % (3.4-9.0); MYELOCYTES % (MANUAL) 1 % (0-0); NEUTROPHILS % (MANUAL) 89 % (40-74)
[2018-02-11 08:00] LABS: PLATELET ESTIMATE MARKEDLY DECREASED; PLATELET MORPHOLOGY COMMENT FEW LARGE; RBC MORPHOLOGY COMMENT NORMAL
[2018-02-11] MEDS ORDERED: FILGRASTIM 300 MCG/ML VIAL SC SCH (09:00)
[2018-02-11] MEDS: GLIMEPIRIDE 2 MG TAB PO SCH ×2 (09:56→17:17)
[2018-02-11] MEDS: FAMOTIDINE 20 MG/2 ML VIAL IV SCH ×2 (09:56→17:17)
[2018-02-11] MEDS: METOPROLOL TARTRATE 50 MG TAB PO SCH (09:57)
[2018-02-11] MEDS: LACTULOSE SYRUP 20 GM/30 ML UDC PO SCH ×3 (09:57→20:20)
[2018-02-11] MEDS: AMLODIPINE BESYLATE 5 MG TAB PO SCH (09:57)
[2018-02-11] MEDS: FOLIC ACID 1 MG TAB PO SCH (09:57)
[2018-02-11] MEDS: RIFAXIMIN 550 MG TABLET PO SCH ×2 (09:57→17:17)
[2018-02-11] MEDS: LOSARTAN POTASSIUM 25 MG TAB PO SCH (09:57)
[2018-02-11] MEDS: FILGRASTIM 300 MCG/ML VIAL SC SCH (09:57)
[2018-02-11] MEDS ORDERED: SODIUM BICARBONATE 650 MG TAB PO SCH (10:00)
[2018-02-11] MEDS ORDERED: LACTULOSE SYRUP 20 GM/30 ML UDC PO ONE (11:00)
[2018-02-11] MEDS: SODIUM BICARBONATE 650 MG TAB PO SCH ×3 (12:32→20:20)
[2018-02-12] VITALS (8 sets, daily range): BP systolic 134–152; BP diastolic 63–72
[2018-02-12 07:26] LABS: BASOPHILS % 0.1 % (0.0-1.0); EOSINOPHILS # (AUTO) 0.2 (0.0-0.4); EOSINOPHILS % 2.3 % (0.0-6.0); HEMATOCRIT 25.2 % (38.2-49.6); HEMOGLOBIN 8.7 g/dL (14.0-18.0); LYMPHOCYTES # (AUTO) 0.6 (1.0-3.2); LYMPHOCYTES % 8.4 % (18.0-39.1); MEAN CORPUSCULAR HEMOGLOBIN 32.8 pg (28-32); MEAN CORPUSCULAR HGB CONC 34.5 g/dL (31-35); MEAN CORPUSCULAR VOLUME 95.1 fL (81-99); MONOCYTES # (AUTO) 0.6 (0.2-0.8); MONOCYTES % 7.8 % (4.4-11.3); NEUTROPHILS # (AUTO) 5.5 (2.1-6.9); RED BLOOD COUNT 2.65 x10e6/uL (4.3-5.7); RED CELL DISTRIBUTION WIDTH 14.3 % (11.7-14.4)
[2018-02-12 07:36] LABS: INR 1.77; PROTHROMBIN TIME 19.4 seconds (11.9-14.5)
[2018-02-12 07:38] LABS: PLATELET COUNT 26 x10e3/uL (140-360)
[2018-02-12 07:56] LABS: ALBUMIN 2.4 g/dL (3.5-5.0); ALBUMIN/GLOBULIN RATIO 0.7 (0.8-2.0); ANION GAP 11.2 mmol/L (8-16); CALCIUM 8.3 mg/dL (8.4-10.2); CREATININE, SERUM 1.86 mg/dL (0.72-1.25); POTASSIUM 4.2 mmol/L (3.5-5.1)
[2018-02-12] MEDS: FOLIC ACID 1 MG TAB PO SCH (10:00)
[2018-02-12] MEDS: FAMOTIDINE 20 MG/2 ML VIAL IV SCH ×2 (10:00→17:07)
[2018-02-12] MEDS: LACTULOSE SYRUP 20 GM/30 ML UDC PO SCH ×3 (10:00→21:09)
[2018-02-12] MEDS: RIFAXIMIN 550 MG TABLET PO SCH ×2 (10:00→17:07)
[2018-02-12] MEDS: LOSARTAN POTASSIUM 25 MG TAB PO SCH (10:00)
[2018-02-12] MEDS: AMLODIPINE BESYLATE 5 MG TAB PO SCH (10:00)
[2018-02-12] MEDS: GLIMEPIRIDE 2 MG TAB PO SCH ×2 (10:00→17:07)
[2018-02-12] MEDS: METOPROLOL TARTRATE 50 MG TAB PO SCH (10:00)
[2018-02-13] VITALS (8 sets, daily range): BP systolic 149–180; BP diastolic 65–77
[2018-02-13 08:03] LABS: INR 1.57; PROTHROMBIN TIME 17.6 seconds (11.9-14.5)
[2018-02-13 08:07] LABS: ALBUMIN 2.7 g/dL (3.5-5.0); ALBUMIN/GLOBULIN RATIO 0.7 (0.8-2.0); ANION GAP 11.4 mmol/L (8-16); CALCIUM 8.6 mg/dL (8.4-10.2); CREATININE, SERUM 1.9 mg/dL (0.72-1.25); POTASSIUM 4.4 mmol/L (3.5-5.1)
[2018-02-13] MEDS: LACTULOSE SYRUP 20 GM/30 ML UDC PO SCH ×3 (08:21→20:16)
[2018-02-13] MEDS: FOLIC ACID 1 MG TAB PO SCH (08:21)
[2018-02-13] MEDS: GLIMEPIRIDE 2 MG TAB PO SCH ×2 (08:21→16:49)
[2018-02-13] MEDS: LOSARTAN POTASSIUM 25 MG TAB PO SCH (08:21)
[2018-02-13] MEDS: FAMOTIDINE 20 MG/2 ML VIAL IV SCH ×2 (08:21→16:49)
[2018-02-13] MEDS: RIFAXIMIN 550 MG TABLET PO SCH ×2 (08:22→16:49)
[2018-02-13] MEDS: METOPROLOL TARTRATE 50 MG TAB PO SCH (08:22)
[2018-02-13] MEDS: AMLODIPINE BESYLATE 5 MG TAB PO SCH (08:22)
[2018-02-13] MEDS: HYDRALAZINE HCL 20 MG/ML VIAL IV PRN (20:16)
[2018-02-14] VITALS (33 sets, daily range): BP systolic 93–210; BP diastolic 44–103
[2018-02-14 06:49] LABS: BASOPHILS % 0.6 % (0.0-1.0); EOSINOPHILS # (AUTO) 0.1 (0.0-0.4); EOSINOPHILS % 3.4 % (0.0-6.0); HEMATOCRIT 27.1 % (38.2-49.6); HEMOGLOBIN 9.4 g/dL (14.0-18.0); LYMPHOCYTES # (AUTO) 0.6 (1.0-3.2); LYMPHOCYTES % 16.9 % (18.0-39.1); MEAN CORPUSCULAR HEMOGLOBIN 32.8 pg (28-32); MEAN CORPUSCULAR HGB CONC 34.7 g/dL (31-35); MEAN CORPUSCULAR VOLUME 94.4 fL (81-99); MONOCYTES # (AUTO) 0.3 (0.2-0.8); MONOCYTES % 7.2 % (4.4-11.3); NEUTROPHILS # (AUTO) 2.5 (2.1-6.9); NEUTROPHILS % 71.3 % (38.7-80.0); RED BLOOD COUNT 2.87 x10e6/uL (4.3-5.7); RED CELL DISTRIBUTION WIDTH 14.4 % (11.7-14.4)
[2018-02-14 06:52] LABS: PLATELET COUNT 34 x10e3/uL (140-360)
[2018-02-14 07:02] LABS: ALBUMIN 2.5 g/dL (3.5-5.0); ALBUMIN/GLOBULIN RATIO 0.7 (0.8-2.0); ANION GAP 10.5 mmol/L (8-16); CALCIUM 8.2 mg/dL (8.4-10.2); CREATININE, SERUM 2.06 mg/dL (0.72-1.25); POTASSIUM 4.5 mmol/L (3.5-5.1)
[2018-02-14] MEDS: GLIMEPIRIDE 2 MG TAB PO SCH ×2 (07:30→17:22)
[2018-02-14 08:51] LABS: ANISOCYTOSIS SLIGHT; BAND NEUTROPHILS % (MANUAL) 3 %; HYPOCHROMASIA SLIGHT; LYMPHOCYTES % (MANUAL) 14 % (19-48); MONOCYTES % (MANUAL) 4 % (3.4-9.0); NEUTROPHILS % (MANUAL) 77 % (40-74)
[2018-02-14 08:52] LABS: PLATELET ESTIMATE MARKEDLY DECREASED; PLATELET MORPHOLOGY COMMENT FEW GIANT; RBC MORPHOLOGY COMMENT NORMAL
[2018-02-14] MEDS: FAMOTIDINE 20 MG/2 ML VIAL IV SCH ×2 (09:00→17:22)
[2018-02-14] MEDS: RIFAXIMIN 550 MG TABLET PO SCH ×2 (09:00→13:48)
[2018-02-14] MEDS: FOLIC ACID 1 MG TAB PO SCH (09:00)
[2018-02-14] MEDS: METOPROLOL TARTRATE 50 MG TAB PO SCH (09:00)
[2018-02-14] MEDS: AMLODIPINE BESYLATE 5 MG TAB PO SCH (09:00)
[2018-02-14] MEDS: LOSARTAN POTASSIUM 25 MG TAB PO SCH (09:00)
[2018-02-14] MEDS: HYDRALAZINE HCL 20 MG/ML VIAL IV PRN (09:02)
[2018-02-14] MEDS: LACTULOSE SYRUP 20 GM/30 ML UDC PO SCH ×6 (10:00→22:14)
[2018-02-14] MEDS ORDERED: HALOPERIDOL LACTATE 5 MG/ML VIAL IV ONE (11:00)
[2018-02-14] MEDS: SODIUM BICARBONATE 650 MG TAB PO SCH ×3 (11:00→17:22)
[2018-02-14] MEDS ORDERED: LACTULOSE SYRUP 20 GM/30 ML UDC RC ONE (11:15)
[2018-02-14] MEDS: SODIUM CHLORIDE 0.9% 1000ML 1,000 ML IV SCH ×2 (11:47→17:22)
[2018-02-14] MEDS: METRONIDAZOLE 500MG/NS 100ML 100 ML IV SCH ×2 (11:50→17:22)
[2018-02-15] VITALS (21 sets, daily range): BP systolic 131–189; BP diastolic 61–101
[2018-02-15] MEDS: METRONIDAZOLE 500MG/NS 100ML 100 ML IV SCH ×3 (00:02→19:37)
[2018-02-15] MEDS: SODIUM CHLORIDE 0.9% 1000ML 1,000 ML IV SCH (00:13)
[2018-02-15] MEDS: LACTULOSE SYRUP 20 GM/30 ML UDC PO SCH ×5 (02:00→21:10)
[2018-02-15] MEDS: HYDRALAZINE HCL 20 MG/ML VIAL IV PRN (05:06)
[2018-02-15 06:47] LABS: ALBUMIN 2.7 g/dL (3.5-5.0); ALBUMIN/GLOBULIN RATIO 0.7 (0.8-2.0); ANION GAP 10.8 mmol/L (8-16); CALCIUM 8.3 mg/dL (8.4-10.2); CREATININE, SERUM 2.27 mg/dL (0.72-1.25); POTASSIUM 3.8 mmol/L (3.5-5.1)
[2018-02-15] MEDS: FAMOTIDINE 20 MG/2 ML VIAL IV SCH (08:31)
[2018-02-15] MEDS: GLIMEPIRIDE 2 MG TAB PO SCH (08:31)
[2018-02-15] MEDS: FOLIC ACID 1 MG TAB PO SCH (08:32)
[2018-02-15] MEDS: LOSARTAN POTASSIUM 25 MG TAB PO SCH (08:32)
[2018-02-15] MEDS: SODIUM BICARBONATE 650 MG TAB PO SCH (08:32)
[2018-02-15] MEDS: AMLODIPINE BESYLATE 5 MG TAB PO SCH (08:32)
[2018-02-15] MEDS: METOPROLOL TARTRATE 50 MG TAB PO SCH (08:32)
[2018-02-15] MEDS: RIFAXIMIN 550 MG TABLET PO SCH ×2 (08:32→19:37)
[2018-02-15] MEDS ORDERED: SODIUM BICARBONATE 8.4% INJ 50 ML SYR IV STA (10:14)
[2018-02-15] MEDS: SODIUM CHLORIDE 0.45% 1,000 ML IV SCH ×2 (10:28→18:15)
[2018-02-15] MEDS: TERAZOSIN HCL 1 MG CAP PO SCH (20:57)
[2018-02-16] VITALS (7 sets, daily range): BP systolic 112–145; BP diastolic 57–67
[2018-02-16] MEDS: SODIUM CHLORIDE 0.45% 1,000 ML IV SCH ×3 (00:07→17:03)
[2018-02-16] MEDS: METRONIDAZOLE 500MG/NS 100ML 100 ML IV SCH ×5 (00:07→23:23)
[2018-02-16] MEDS: LACTULOSE SYRUP 20 GM/30 ML UDC PO SCH ×6 (02:12→21:14)
[2018-02-16 07:26] LABS: ALBUMIN 2.4 g/dL (3.5-5.0); ALBUMIN/GLOBULIN RATIO 0.7 (0.8-2.0); ANION GAP 9.5 mmol/L (8-16); CALCIUM 7.6 mg/dL (8.4-10.2); CREATININE, SERUM 2.09 mg/dL (0.72-1.25); POTASSIUM 3.5 mmol/L (3.5-5.1)
[2018-02-16] MEDS: FOLIC ACID 1 MG TAB PO SCH (08:15)
[2018-02-16] MEDS: GLIMEPIRIDE 2 MG TAB PO SCH (08:15)
[2018-02-16] MEDS: TERAZOSIN HCL 1 MG CAP PO SCH ×2 (08:16→21:14)
[2018-02-16] MEDS: METOPROLOL TARTRATE 25 MG TAB PO SCH (08:16)
[2018-02-16] MEDS: AMLODIPINE BESYLATE 10 MG TAB PO SCH (08:16)
[2018-02-16] MEDS: RIFAXIMIN 550 MG TABLET PO SCH ×2 (08:17→17:03)
[2018-02-16] MEDS: SODIUM BICARBONATE 650 MG TAB PO SCH (08:17)
[2018-02-16] MEDS ORDERED: AMLODIPINE BESYLATE 5 MG TAB PO SCH (09:00)
[2018-02-16] MEDS ORDERED: METOPROLOL TARTRATE 50 MG TAB PO SCH (09:00)
[2018-02-16] MEDS: SODIUM BICARBONATE 8.4% INJ 50 ML SYR IV SCH ×2 (11:44→23:00)
[2018-02-17] VITALS (8 sets, daily range): BP systolic 128–144; BP diastolic 63–69
[2018-02-17] MEDS: LACTULOSE SYRUP 20 GM/30 ML UDC PO SCH ×6 (01:30→22:00)
[2018-02-17] MEDS: SODIUM CHLORIDE 0.45% 1,000 ML IV SCH ×5 (02:15→21:44)
[2018-02-17 07:47] LABS: ALBUMIN 2.4 g/dL (3.5-5.0); ALBUMIN/GLOBULIN RATIO 0.7 (0.8-2.0); ANION GAP 9.7 mmol/L (8-16); CALCIUM 7.5 mg/dL (8.4-10.2); CREATININE, SERUM 1.92 mg/dL (0.72-1.25); POTASSIUM 3.7 mmol/L (3.5-5.1)
[2018-02-17] MEDS: GLIMEPIRIDE 2 MG TAB PO SCH (08:00)
[2018-02-17] MEDS: FOLIC ACID 1 MG TAB PO SCH (08:48)
[2018-02-17] MEDS: TERAZOSIN HCL 1 MG CAP PO SCH ×2 (08:48→20:44)
[2018-02-17] MEDS: SODIUM BICARBONATE 650 MG TAB PO SCH (08:49)
[2018-02-17] MEDS: AMLODIPINE BESYLATE 10 MG TAB PO SCH (08:49)
[2018-02-17] MEDS: RIFAXIMIN 550 MG TABLET PO SCH ×2 (08:50→17:24)
[2018-02-17] MEDS: METOPROLOL TARTRATE 25 MG TAB PO SCH (08:55)
[2018-02-17] MEDS: SODIUM BICARBONATE 8.4% INJ 50 ML SYR IV SCH ×2 (13:49→19:26)
[2018-02-18] MEDS: SODIUM BICARBONATE 8.4% INJ 50 ML SYR IV SCH (00:37)
[2018-02-18] MEDS: LACTULOSE SYRUP 20 GM/30 ML UDC PO SCH ×3 (02:00→09:10)
[2018-02-18] MEDS: SODIUM CHLORIDE 0.45% 1,000 ML IV SCH ×2 (02:02→08:55)
[2018-02-18 04:00] VITALS: BP 153/70
[2018-02-18 07:05] LABS: ALBUMIN 2.5 g/dL (3.5-5.0); ALBUMIN/GLOBULIN RATIO 0.7 (0.8-2.0); ANION GAP 11.3 mmol/L (8-16); CALCIUM 7.5 mg/dL (8.4-10.2); CREATININE, SERUM 1.76 mg/dL (0.72-1.25); POTASSIUM 4.3 mmol/L (3.5-5.1)
[2018-02-18] MEDS ORDERED: GLIMEPIRIDE 2 MG TAB PO SCH (08:00)
[2018-02-18 08:01] VITALS: BP 152/71
[2018-02-18] MEDS: AMLODIPINE BESYLATE 10 MG TAB PO SCH (09:00)
[2018-02-18] MEDS: RIFAXIMIN 550 MG TABLET PO SCH (09:00)
[2018-02-18] MEDS: METOPROLOL TARTRATE 25 MG TAB PO SCH (09:00)
[2018-02-18] MEDS: FOLIC ACID 1 MG TAB PO SCH (09:00)
[2018-02-18] MEDS: TERAZOSIN HCL 1 MG CAP PO SCH (09:00)
[2018-02-18] MEDS: SODIUM BICARBONATE 650 MG TAB PO SCH (09:00)
[2018-02-18] MEDS ORDERED: LOPRESSOR25 MG PO (09:05)
[2018-02-18] MEDS ORDERED: NORVASC10 MG PO (09:05)
[2018-02-18] MEDS ORDERED: TERAZOSIN HCL1 MG PO (09:05)
[2018-02-18] MEDS ORDERED: SODIUM BICARBO650 MG PO (09:05)
[2018-02-18] MEDS ORDERED: LACTULOSE20 GM/30 M PO (09:05)
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
== END 2018-02-18 11:47 | disposition home health service (06) | DRG 433 ==
LOC: ER 11:10 → ERHOLD 13:34 → MED/SURG3 14:16 → ICU 02-14 10:31 → MED/SURG 02-15 11:10
PROVIDERS: ADMIT Internal Medicine Cardiovascular Disease; ATTEND Internal Medicine Cardiovascular Disease
DX: K70.31 Alcoholic cirrhosis of liver with ascites (principal); D61.818 Other pancytopenia; E87.2 Acidosis; K72.90 Hepatic failure, unspecified without coma; Z91.14 Patient's other noncompliance with medication regimen; E86.0 Dehydration; D69.6 Thrombocytopenia, unspecified; E88.09 Other disorders of plasma-protein metabolism, not elsewhere classified; R16.1 Splenomegaly, not elsewhere classified; E11.649 Type 2 diabetes mellitus with hypoglycemia without coma; N40.0 Benign prostatic hyperplasia without lower urinary tract symptoms; Z87.891 Personal history of nicotine dependence; E11.22 Type 2 diabetes mellitus with diabetic chronic kidney disease; I12.9 Hypertensive chronic kidney disease with stage 1 through stage 4 chronic kidney disease, or unspecified chronic kidney disease; N18.3 Chronic kidney disease, stage 3 (moderate); Z79.4 Long term (current) use of insulin; B19.20 Unspecified viral hepatitis C without hepatic coma; F10.20 Alcohol dependence, uncomplicated
CPT/HCPCS: 36415; 76700; 80053; 80061; 81001; 82105; 82140; 82270; 82948; 83735; 84100; 84443; 85025; 85610; 85730; 86900; 87522; 93005; 99284; J0360; J1442; J1630; J7030